=== PATIENT | male | born 1970 | race Caucasian/White ===

== ENCOUNTER 2023-02-03 08:53 | Emergency (ER) | payer BC ==
[~2023-02-03] VITALS: Ht 180.3 cm; Wt 127.0 kg
[~2023-02-03 08:53] MED LIST: AMOX500 PO; CYCL10 PO; DURATUSS PO; HYDACE10B PO; HYDGUAL120 PO; META800 PO; NAPR500 PO; Naprosyn500 MG PO; Norco 5-325 Ta1 EACH PO; Valium5 MG PO
[2023-02-03 09:47] VITALS: BP 168/117
[2023-02-03] MEDS ORDERED: Norco 5-325 Ta1 EACH PO (12:53)
[2023-02-03] MEDS ORDERED: Robaxin750 MG PO (12:53)
== END 2023-02-03 13:03 | disposition home or self-care (01) ==
LOC: ER 08:53
DX: M25.512 Pain in left shoulder (principal); M25.552 Pain in left hip; M25.572 Pain in left ankle and joints of left foot; W11.XXXA Fall on and from ladder, initial encounter; Z88.2 Allergy status to sulfonamides; Z88.5 Allergy status to narcotic agent; Z79.899 Other long term (current) drug therapy
CPT/HCPCS: 73030; 73502; 73610; 99284-25